=== PATIENT | male | born 1970 | race Caucasian/White ===

== ENCOUNTER 2017-09-24 21:31 | Emergency (ER) | payer BC ==
--- NOTE | 2017-09-24 22:15 | ERPHSYRPT ---
- History of Present Illness Time Seen by Provider: 09/24/17 22:08 Source: patient Exam Limitations: no limitations Patient Subjective Stated Complaint: sorethroat, can't swallow Triage Nursing Assessment: Pt c/o of sore throat pain for the past 3 days, hard to drink and eat, states right ear has been itchy, denies fever, BP 140/86 other vitals wnl, doesn't appear to be in any distress Physician History: 47-year-old white male with history of high blood pressure, gallbladder disease , renal disease Patient arrives with complaint of sore throat for 3 days states it hurts to swallow and difficulty to swallow he also states his right ear itches. He has no fever no nausea no vomiting he is not short of breath. Past medical history includes high blood pressure, gallbladder disease, kidney disease with a 30-40% failure. Past surgical history includes kidney surgery (biopsy). Cholecystectomy Social history patient chews tobacco he denies alcohol or illicit drug use. Timing/Duration: day(s) (3 days) Severity: moderate Modifying Factors: Improves With: nothing Associated Symptoms: other (sore throat and difficulty swallowing), No nausea, No vomiting, No abdominal pain, No shortness of breath, No heartburn, No diaphoresis, No cough, No chills, No chest pain, No fever, No headaches, No loss of appetite, No malaise, No rash, No syncope, No seizure, No weakness Allergies/Adverse Reactions: No Known Drug Allergies Allergy (Verified 09/24/17 22:02) Home Medications: Amlodipine Besylate 10 mg PO DAILY 09/24/17 [History] Tramadol HCl 50 mg [Ultram 50 mg] 50 mg PO DAILY 09/24/17 [History] Hx Tetanus, Diphtheria Vaccination/Date Given: Yes Hx Influenza Vaccination/Date Given: Yes Hx Pneumococcal Vaccination/Date Given: No - Review of Systems Constitutional: No Fever, No Chills Eyes: No Symptoms Ears, Nose, & Throat: Ear Pain (Right ear itches), Throat Pain, Painful Swallowing, No Ear Discharge, No Hearing Changes, No Tinnitus, No Nose Pain, No Nose Congestion, No Nose Discharge, No Sinus Drainage, No Epistaxis, No Mouth Pain, No Mouth Swelling, No Loose Teeth, No Throat Swelling, No Hoarse, No Snoring, No Stridor Respiratory: No Cough, No Dyspnea Cardiac: No Chest Pain, No Edema, No Syncope Abdominal/Gastrointestinal: No Abdominal Pain, No Nausea, No Vomiting, No Diarrhea Genitourinary Symptoms: No Dysuria Musculoskeletal: No Back Pain, No Neck Pain Skin: No Rash Neurological: No Dizziness, No Focal Weakness, No Sensory Changes Psychological: No Symptoms Endocrine: No Symptoms All Other Systems: Reviewed and Negative - Past Medical History Pertinent Past Medical History: No Neurological History: No Pertinent History ENT History: No Pertinent History Cardiac History: No Pertinent History, Hypertension Respiratory History: No Pertinent History Endocrine Medical History: No Pertinent History Musculoskeletal History: No Pertinent History GI Medical History: Gallbladder Disease History: Other Psycho-Social History: No Pertinent History Male Reproductive Disorders: No Pertinent History Other Medical History: KIDNEY 30% -40% FUNCTION - Past Surgical History Past Surgical History: Yes Neuro Surgical History: No Pertinent History Cardiac: No Pertinent History Respiratory: No Pertinent History Gastrointestinal: Cholecystectomy Genitourinary: Kidney Surgery Musculoskeletal: No Pertinent History Male Surgical History: No Pertinent History Other Surgical History: kidney biopsy,pt states function of rodo. kidneys are 50% - Social History Smoking Status: Never smoker Exposure to second hand smoke: Yes Drug Use: none Patient Lives Alone: No - Nursing Vital Signs Nursing Vital Signs: Initial Vital Signs Temperature 98.1 F 09/24/17 21:53 Pulse Rate 58 L 09/24/17 21:53 Blood Pressure 140/86 09/24/17 21:53 O2 Sat by Pulse Oximetry 96 09/24/17 21:53 Pain Scale Pain Intensity 5 - Physical Exam General Appearance: no apparent distress, alert Eye Exam: PERRL/EOMI, eyes nml inspection Ears, Nose, Throat Exam: TMs normal, pharyngeal erythema, other (airway clear), No pharynx normal (throat mild erythema), No dry mucous membranes, No TM abnormal (R), No TM abnormal (L), No tonsillar exudate Neck Exam: normal inspection, non-tender, supple, full range of motion Respiratory Exam: normal breath sounds, lungs clear, No respiratory distress Cardiovascular Exam: regular rate/rhythm, normal heart sounds, normal peripheral pulses Gastrointestinal/Abdomen Exam: soft, normal bowel sounds, No tenderness, No mass Back Exam: normal inspection, normal range of motion, No CVA tenderness, No vertebral tenderness Extremity Exam: normal inspection, normal range of motion, pelvis stable Neurologic Exam: alert, oriented x 3, cooperative, circus roustabout II-XII nml as tested, normal mood/affect, nml cerebellar function, nml station & gait, sensation nml, No motor deficits Skin Exam: normal color, warm, dry, No rash SpO2 Interpretation: normal (96%) SpO2: 96 Oxygen Delivery: Room Air - Course Nursing assessment & vital signs reviewed: Yes Lab/Rad Data: Laboratory Results 09/24/17 Range/Units Unknown Group A Strep Antibody NEGATIVE (NEGATIVE) - Progress Progress: improved Progress Note: 09/24/17 22:55 47-year-old white male arrives with complaint of sore throat for 3 days. States he is having pain with swallowing. Strep is negative. Patient has no fevers. Will write for prednisone tapering dose. Patient is on tramadol at home. Patient does chew tobacco. - Departure Time of Disposition: 22:56 Departure Disposition: Home Clinical Impression: Viral pharyngitis, Throat pain Condition: Fair Critical Care Time: No Referrals: CARLOS SIMON [Primary Care Provider] - Instructions: Viral Pharyngitis (DC) Additional Instructions: Tylenol or tramadol as prescribed by your family doctor as needed for pain. Plenty of fluids. Stop chewing tobacco. Tapering dose of prednisone as prescribed. Follow-up with your family doctor if symptoms are worse, no better in 48 hours, or persist longer than one week. Return for acute distress or for severe symptoms.
[2017-09-24] MEDS ORDERED: DELTASONE 20 MG PO ONE (22:54)
[2017-09-24 23:02] VITALS: BP 133/85; PULSE 59; O2SAT 95
[2017-09-24] MEDS ORDERED: DELTASONE 20 MG ONE (23:02)
== END 2017-09-24 23:17 | disposition home or self-care (01) ==
LOC: ED 21:31
DX: B08.5 Enteroviral vesicular pharyngitis (principal); R07.0 Pain in throat; I10 Essential (primary) hypertension; N28.9 Disorder of kidney and ureter, unspecified; R13.10 Dysphagia, unspecified
CPT/HCPCS: 87651; 99283; A9270-GY